=== PATIENT | male | born 1985 | race Caucasian/White ===

== ENCOUNTER 2019-05-12 13:09 | Emergency (ER) | payer OTHER ==
[~2019-05-12] VITALS: Ht 177.8 cm; Wt 78.9 kg
[~2019-05-12 13:09] MED LIST: NAPR-688 PO; ONDA4TAB8 PO
[2019-05-12 13:58] VITALS: BP 145/81; PULSE 88; RESP 18; Ht 177.8 cm; Wt 78.9 kg
[2019-05-12] MEDS ORDERED: CEPH-443 PO (14:13)
[2019-05-12] MEDS ORDERED: SULF1TAB31 PO (14:13)
--- NOTE | 2019-05-12 14:21 | ERD ---
ER Documentation Chief Complaint Chief Complaint rash/wound to the left forearm and hand HPI 33-year-old male presents with complaint of ulcers on his right hands and left elbow since past 2 weeks. Patient states he is tried various treatments but none have been effective. Patient denies any fevers, chills, impaired range of motion of hands, numbness, tingling. ROS All systems reviewed and are negative except as per history of present illness. Medications Home Meds Active Scripts Cephalexin* (Keflex*) 500 Mg Capsule, 500 MG PO QID for 7 Days, CAP Prov:MARGARETTE ALDANA 05/12/19 Sulfamethoxazole/Trimethoprim* (Bactrim Ds* Tablet) 1 Each Tablet, 1 TAB PO BID, #14 TAB Prov:MARGARETTE ALDANA 05/12/19 Naproxen* (Naproxen*) 500 Mg Tablet, 500 MG PO BID for PAIN, #20 TAB Prov:ELLIOTT CARRANZA DO 08/02/16 Ondansetron Hcl* (Zofran*) 4 Mg Tablet, 4 MG PO Q6H for NAUSEA AND/OR VOMITING, #20 TAB Prov:ELLIOTT CARRANZA DO 08/02/16 Allergies Allergies: Coded Allergies: No Known Allergy (Unverified , 08/02/16) PMhx/Soc Medical and Surgical Hx: pt denies Medical Hx History of Surgery: Yes (left leg) Anesthesia Reaction: No Hx Neurological Disorder: No Hx Respiratory Disorders: No Hx Cardiac Disorders: No Hx Psychiatric Problems: No Hx Miscellaneous Medical Probl: No Hx Alcohol Use: Yes Hx Substance Use: No Hx Tobacco Use: Yes Smoking Status: Never smoker FmHx Family History: No diabetes, No coronary disease, No other Physical Exam Vitals Vital Signs Date Temp Pulse Resp B/P (MAP) Pulse Ox O2 O2 Flow FiO2 Time Delivery Rate 05/12/19 98.7 88 18 145/81 97 13:58 (102) Physical Exam Iconst: No acute distress Head: Atraumatic Eyes: Normal Conjunctiva ENT: Normal External Ears, Nose and Mouth. Neck: Full range of motion. No meningismus. Resp: Clear to auscultation bilaterally Cardio: Regular rate and rhythm, no murmurs Abd: Soft, non tender, non distended. Normal bowel sounds Skin: Ulcerated lesions approximately 1 cm in diameter noted on the left elbow and right forearm. They are erythematous. There is no fusiform swelling, digits stuck in flexion, tenderness to palpation over the flexor tendon, or pain with passive extension. Distal sensation intact. Back: No midline or flank tenderness Ext: No cyanosis, or edema Neur: Awake and alert Psych: Normal Mood and Affect Results 24 hrs Current Medications Medications Dose Sig/[place] Start Time Status Last (Trade) Ordered Route PRN Stop Time Admin Dose Reason Admin Bacitracin 1 applic ONCE ONCE 05/12/19 (Bacitracin TOP 14:30 05/12/19 Oint (Ud)) 14:31 Ibuprofen 600 mg ONCE ONCE 05/12/19 (Motrin) PO 14:30 05/12/19 14:31 Cefazolin 1 gm ONCE ONCE 05/12/19 Sodium IM 14:30 05/12/19 (Ancef) 14:31 Procedures/MDM MDM: Patient was given 1 g of Ancef in the ER to help him start his treatment and patient was discharged with 7-day course of Keflex and Bactrim. I have low suspicion for tenosynovitis, acute space infection, drainable abscess,, necrotizing fasciitis, sepsis, gangrene, Clayton-Bon syndrome, toxic epidural necrolysis, anaphylaxis, allergic reaction. Patient was advised that if the lesions do not resolve after the course of antibiotics over symptoms worsen he should return to ER immediately. Patient is afebrile and is not meet sirs criteria. At this time, patient is stable for discharge and outpatient management. I have instructed the patient to follow-up with his/her primary care physician in 1-2 days. I have discussed with the patient the possibility of needing to see a specialist for further workup and imaging studies if symptoms persist. I have instructed the patient to promptly return to the ER for any new or worsening symptoms including but not limited to increased pain, fever, nausea, vomiting, weakness or LOC. The patient and/or family expressed understanding of and agreement with this plan. All questions were answered. Home care instructions were provided. DISCLAIMER: Inadvertent spelling and grammatical errors are likely due to EHR/dictation software use and do not reflect on the overall quality of patient care. Also, please note that the electronic time recorded on this note does not necessarily reflect the actual time of the patient encounter. Departure Diagnosis: Primary Impression: Skin infection Condition: Stable Patient Instructions: Mrsa Skin Infection, Suspected Or Confirmed Referrals: [facility] YOU HAVE RECEIVED A MEDICAL SCREENING EXAM AND THE RESULTS INDICATE THAT YOU DO NOT HAVE A CONDITION THAT REQUIRES URGENT TREATMENT IN THE EMERGENCY DEPARTMENT. FURTHER EVALUATION AND TREATMENT OF YOUR CONDITION CAN WAIT UNTIL YOU ARE SEEN IN YOUR DOCTORS OFFICE WITHIN THE NEXT 1-2 DAYS. IT IS YOUR RESPONSIBILITY TO MAKE AN APPOINTMENT FOR FOLOW-UP CARE. IF YOU HAVE A PRIMARY DOCTOR --you should call your primary doctor and schedule an appointment IF YOU DO NOT HAVE A PRIMARY DOCTOR YOU CAN CALL OUR PHYSICIAN REFERRAL HOTLINE AT IF YOU CAN NOT AFFORD TO SEE A PHYSICIAN YOU CAN CHOSE FROM THE FOLLOWING [facility] [address] [facility] [facility]. [facility] [address] [facility] [address] [facility] [facility] [address] [facility] [facility] [place] [address] [facility] [facility] [address] Additional Instructions: FOLLOW UP WITH YOUR PRIMARY CARE PHYSICIAN TOMORROW.Return to this facility if you are not improving as expected. MARGARETTE ALDANA May 12, 2019 14:21
[2019-05-12] MEDS ORDERED: CEFAZOLIN 1 GM INJ IM ONE (14:30)
[2019-05-12] MEDS ORDERED: BACITRACIN 0.9 GM OINT TOP ONE (14:30)
[2019-05-12] MEDS ORDERED: IBUPROFEN 600 MG TAB PO ONE (14:30)
== END 2019-05-12 14:51 | disposition home or self-care (01) ==
LOC: FTE 13:09
DX: L08.9 Local infection of the skin and subcutaneous tissue, unspecified (principal); Z87.891 Personal history of nicotine dependence
CPT/HCPCS: 96372; J0690; Z7502; Z7610

== ENCOUNTER 2019-07-05 14:11 | Emergency (ER) | payer OTHER ==
[~2019-07-05] VITALS: Ht 177.8 cm; Wt 77.1 kg
[~2019-07-05 14:11] MED LIST changes: +ACET325T33 PO; +CEPH-443 PO; +HYDR-4011 PO; +IBUP-1561 PO; +SULF1TAB31 PO
[2019-07-05 14:16] VITALS: BP 135/81; PULSE 89; RESP 16; Ht 177.8 cm; Wt 77.1 kg
[2019-07-05] MEDS ORDERED: HYDROCODONE/APAP (10/325) TAB PO ONE (15:30)
[2019-07-05] MEDS ORDERED: IBUPROFEN 800 MG TAB PO ONE (15:30)
[2019-07-05] MEDS ORDERED: LORAZEPAM 0.5 MG TAB PO ONE (15:30)
== END 2019-07-05 16:58 | disposition home or self-care (01) ==
LOC: FTE 14:11
DX: S52.614A Nondisplaced fracture of right ulna styloid process, initial encounter for closed fracture (principal); W20.8XXA Other cause of strike by thrown, projected or falling object, initial encounter; Y92.89 Other specified places as the place of occurrence of the external cause; Z87.891 Personal history of nicotine dependence
CPT/HCPCS: 29125; 73130; Z7502; Z7610